=== PATIENT | male | born 1960 | race Two or more races ===

== ENCOUNTER 2017-06-03 06:06 | Inpatient (IN) | payer OTHER ==
[~2017-06-03] VITALS: Ht 180.3 cm; Wt 121.3 kg
[~2017-06-03 06:06] MED LIST: HYDR-3326 PO
--- NOTE | 2017-06-03 06:56 | NUR ---
MS RN NOTES RECEIVED PT AMBULATORY FOR SURGERY TODAY ACCORDING TO THE PT. HE'S BEEN NPO SINCE LAST NIGHT AROUND 5. PM 06/02/17 A/OX4, RESPIRATIONS EVEN AND UNLABORED TOLERATING ROOM AIR O2 SAT AT 98% AFEBRILE, IN STABLE CONDITION. NOT IN S/S OF DISTRESS. NO S/S OF HYPO/HYPERGLYCEMIA. HEAD TO TOE SKIN ASSESSMENT SKIN IS INTACT, ALL NURSING CARE RENDERED. NEEDS ATTENDED AND ANTICIPATED, KEPT CLEAN AND DRY AND COMFORTABLE, GOOD SKIN CARE PROVIDED. ON LOW BED AT ALL TIMES TO ENSURE SAFETY. SAFE HAZARD FREE ENVIRONMENT PROVIDED. CALL LIGHT WITHIN EASY TO REACH. WILL ENDORSE NEXT SHIFT CONTINUITY OF CARE.
[2017-06-03 06:58] VITALS: BP 152/98
--- NOTE | 2017-06-03 07:38 | NUR ---
MS RN: INITIAL NOTE RECEIVED PT A/OX4. DIRECT ADMISSION FROM HOME FOR SURGERY. L KNEE ATRIOPLASTY SCHEDULED. ALL CONSENTS FORMED SINGED AND PLACED IN CHART. POST OP CHECK LIST DONE. NO DISTRESS NOTED. NO SOB NOTED. VS STABLE. SKIN INTACT. IV ON RFA #20. SITE CLEAR AND PATENT. MRSA SURVEILLANCE DONE. OR PICKED UP PT AT 0730.
[2017-06-03] MEDS ORDERED: MIDAZOLAM HCL 2 MG/2ML VIAL ONE (07:50)
[2017-06-03] MEDS ORDERED: FENTANYL PF 100MCG/2ML AMPUL ONE (07:50)
[2017-06-03] MEDS ORDERED: KETOROLAC TROMETHAMINE INJ 30 MG/ML VIAL ONE (08:00)
[2017-06-03] MEDS ORDERED: BACITRACIN 50000 UNITS/VIAL ONE (08:01)
[2017-06-03] MEDS ORDERED: BUPIVACAINE 0.5 % PF 150 MG/30 ML VIAL ONE (08:01)
[2017-06-03] MEDS ORDERED: KETAMINE HCL (500MG/10ML) 50 MG/ML VIAL ONE (08:24)
[2017-06-03] MEDS ORDERED: TRANEXAMIC ACID 3,000 MG in SODIUM CHLORIDE IRRIG SOLUTION 70 ML IR ONE (08:30)
[2017-06-03 08:33] VITALS: BP 154/95
--- NOTE | 2017-06-03 10:30 | NUR ---
PT RETURNED FROM TOTAL L KNEE ATROSPLASTY DONE BY MD BISHOP. REPORT GIVEN BY HARLEY FROM OR. ALL ORDERS IN CHART FAXED TO PHARMACY. ALL OTHER ORDERS PLACED. PT A/OX4. NO PAIN NOTED. NO DISTRESS NOTED. ON 2 L NC SATING AT 97%. NO N/V NOTED. BLE STILL FEELING NUMB. ABLE TO MOVE SLIGHTLY. BP 125/93, PULSE 86, TEMP 98.2, RR 20. RESTING COMFORTABLY IN BED. CALL LIGHT WITHIN REACH.
[2017-06-03] MEDS ORDERED: BISACODYL SUPP (10 MG) 10 MG/SUPP.RECT SUPP.RECT RC PRN (11:00)
[2017-06-03] MEDS ORDERED: HYDROCODONE/APAP 5/325MG 1 EACH TABLET PO PRN (11:00)
[2017-06-03] MEDS ORDERED: ZOLPIDEM TARTRATE 5 MG TABLET PO PRN (11:00)
[2017-06-03] MEDS ORDERED: ONDANSETRON HCL/PF 4 MG/2 ML VIAL IV PRN (11:00)
[2017-06-03] MEDS ORDERED: ACETAMINOPHEN 325 MG TABLET PO PRN (11:00)
[2017-06-03] MEDS ORDERED: DOCUSATE SODIUM 250 MG CAPSULE PO PRN (11:00)
[2017-06-03] MEDS ORDERED: SENNOSIDES 8.6 MG TABLET PO PRN (11:00)
[2017-06-03] MEDS: IV D5/0.45 NACL 1,000 ML IV PRN ×2 (11:20→19:42)
[2017-06-03] MEDS: ANCEF 1 GM/50 ML D5W IV SCH ×4 (11:32→19:42)
[2017-06-03] MEDS: NICOTINE PATCH (21MG) 21 MG PATCH.TD24 TD SCH (12:33)
[2017-06-03] MEDS ORDERED: MAGNESIUM HYDROXIDE 30 ML UDC PO PRN (13:00)
[2017-06-03] MEDS ORDERED: PROMETHAZINE HCL 25 MG/ML AMPUL IM PRN (13:00)
[2017-06-03] MEDS ORDERED: CLONIDINE HCL 0.1 MG TABLET PO PRN ×2 (13:00→17:30)
[2017-06-03] MEDS ORDERED: oxyCODONE IR immediate release 5 MG CAPSULE PO PRN (13:00)
[2017-06-03] MEDS ORDERED: MAG HYDROX/AL HYDROX/SIMETH 30 ML UDC PO PRN (13:00)
[2017-06-03] MEDS ORDERED: MENTHOL/CETYLPYRD (CEPACOL) 1 LOZ LOZENGE PO PRN (13:00)
[2017-06-03] MEDS ORDERED: diphenhydrAMINE HCL 25 MG CAPSULE PO PRN (13:00)
[2017-06-03] MEDS: HYDROMORPHONE INJ 2 MG/ML DISP.SYRIN SQ PRN ×3 (13:03→21:39)
[2017-06-03] MEDS ORDERED: HYDR-3203 PO (15:36)
[2017-06-03] MEDS ORDERED: MELO-270 PO (15:36)
[2017-06-03] MEDS ORDERED: ACYC400T PO (15:36)
[2017-06-03] MEDS ORDERED: FOLI1TAB16 PO (15:36)
[2017-06-03] MEDS ORDERED: METO-304 PO (15:36)
[2017-06-03] MEDS ORDERED: METH2.5T PO (15:36)
[2017-06-03] MEDS: DOCUSATE SODIUM 100 MG CAPSULE PO SCH (16:08)
[2017-06-03] MEDS: HYDROCODONE/APAP 10/325MG 1 EA TABLET PO PRN ×2 (16:08→20:35)
[2017-06-03] MEDS: ASPIRIN 325 MG TABLET PO SCH (16:08)
--- NOTE | 2017-06-03 16:24 | NUR ---
PER MD CHAVEZ TO INCREASE OXYCODONE TO 15 MG [id number]. ADD NEW ORDER OF METROPOLOL 25MG BID. HOLD IS SBP<130. ALL ORDERS PLACED.
--- NOTE | 2017-06-03 16:53 | NUR ---
BP HIGH DUE TO PAIN. NOTIFIED MD CHAVEZ. NEW ORDERS PLACED. PT ASYMPTOMATIC. NO BLURRED VISION. NO HEADACHE NOTED. RESPONDING. A/OX4. WILL CONTINUE TO MONITOR.
[2017-06-03] MEDS ORDERED: METOPROLOL TARTRATE 25 MG TABLET PO SCH (17:00)
[2017-06-03] MEDS ORDERED: METOPROLOL TARTRATE 50 MG TABLET PO SCH (17:30)
[2017-06-03] MEDS: oxyCODONE IR immediate release 5 MG CAPSULE PO PRN (18:23)
--- NOTE | 2017-06-03 18:34 | NUR ---
MS RN: CLOSING NOTE PT A/OX4. STATUS POST LEFT TOTAL KNEE ATROPLASTY DONE BY MD BISHOP. TOOK ALL MEDICATIONS ON TIME. NO ADVERSE REACTIONS NOTED. PT ATE REGULAR MEALS THROUGH OUT THE DAY. NO N/V NOTED. PAIN CONTROLLED WITH PAIN MEDICATIONS PER MD SCOTT ORDERS. BP HIGH DUE TO PAIN. CLONIDINE ADMINISTERED PRN AND METROPOLOL PER MD ORDER. BP DOWN TO 165/80. PT ASYMPTOMATIC. MD AWARE OF BP. CONTINENT. JAIME CATH IN PLACE AND DRAINING, OUTPUT 850ML. SKIN INTACT. DRESSING ON LEFT KNEE SHOULD BE CHANGED BY MD. RFA #20 RUNNING D5 1/2 NS AT 125ML/HR. SITE CLEAR AND PATENT. CPM MACHINE TO BE PLACED FOR 6 HOURS. PT TOLERATED WELL. PT WALKED PT TODAY. ORDER TO BE FULL WEIGHT BARING WITH IMMOBILIZER WHEN AMBULATING. RESTING COMFORTABLY IN BED. CALL LIGHT WITHIN REACH.
--- NOTE | 2017-06-03 19:32 | NUR ---
MS RN INITIAL NOTES PT IS IN BED RESTING WITH CPM IN PLACE. A/0 X4 ABLE TO MAKE NEEDS KNOWN. PER DAY SHIFT, PT BP IS HIGH DUE TO PAIN. PAIN MEDS TO BE GIVEN Q1HR. JAIME CATHETER IS INTACT AND PATENT. IV ACCESS IS INTACT AND INFUSING D5 1/2 NS @125. DRESSING IS INTACT NO S/S OF LEAKAGE. BED IS IN LOW AND LOCKED POSITION, CALL LIGHT WITHIN REACH. WILL CONTINUE TO MONITOR PT
[2017-06-03 20:00] VITALS: BP 167/94
[2017-06-03] MEDS: PANTOPRAZOLE 40 MG TABLET.DR PO SCH (21:38)
[2017-06-04] MEDS: HYDROMORPHONE INJ 2 MG/ML DISP.SYRIN SQ PRN ×6 (03:17→22:46)
[2017-06-04] MEDS: IV D5/0.45 NACL 1,000 ML IV PRN (03:23)
[2017-06-04] MEDS: oxyCODONE IR immediate release 5 MG CAPSULE PO PRN ×3 (04:53→20:01)
[2017-06-04] MEDS: HYDROCODONE/APAP 10/325MG 1 EA TABLET PO PRN ×3 (06:00→21:18)
--- NOTE | 2017-06-04 06:13 | NUR ---
MS RN CLOSING NOTES PT IS IN BED RESTING, A/O X4 ABLE TO MAKE NEEDS KNOWN. BREATHING EVENLY AND UNLABORED ON RA. STATED HE WAS ABLE TO GET A GOOD NIGHTS SLEEP. PRN PAIN MEDICATION GIVEN ORDERED. JAIME CATHETER IS INTACT AND DRAINING. IV ACCESS IS INTACT AND INFUSING. DRESSING ON LEFT LEG IS INTACT. ALL NEEDS WERE ANTICIPATED AND MET. PT REFUSED BED BATH AND LINEN CHANGE. BED IS IN LOW AND LOCKED POSITION, CALL LIGHT WITHIN REACH. WILL ENDORSE TO DAYSHIFT.
[2017-06-04 06:27] LABS: HEMOGLOBIN 13.4 g/dL (13.5-17.5)
--- NOTE | 2017-06-04 07:45 | NUR ---
RECEIVED PATIENT IN BED, RESTING, NOTED WITH NO SOB, BREATHING EVEN AND UNLABORED, ALERT AND ORIENTED X 4, ABLE TO VERBALIZE NEEDS. WITH C/O PAIN, DUE MEDICATION GIVEN, WITH NO SIGNS OF ACUTE DISTRESS. KEPT PATIENT SAFE AND DRY. CONTINUES TO HAVE JAIME CATHETER AND IS DRAINING WELL WITH YELLOW URINE. ON IV HYDRATION D5 1/2 NS @ 125 ML/HR, INFUSING WELL. ALL PATIENT'S NEEDS ATTENDED TO, CALL LIGHT PLACED WITHIN EASY REACH. WILL CONTINUE TO MONITOR
[2017-06-04 08:30] VITALS: BP 167/97
[2017-06-04] MEDS: FOLIC ACID 1 MG TABLET PO SCH (08:40)
[2017-06-04] MEDS: ASPIRIN 325 MG TABLET PO SCH ×2 (08:40→16:22)
[2017-06-04] MEDS: DOCUSATE SODIUM 100 MG CAPSULE PO SCH ×2 (08:40→16:22)
[2017-06-04] MEDS: METOPROLOL TARTRATE 50 MG TABLET PO SCH ×2 (08:41→21:14)
[2017-06-04] MEDS: ACYCLOVIR 200 MG CAPSULE PO SCH (08:41)
[2017-06-04] MEDS: NICOTINE PATCH (21MG) 21 MG PATCH.TD24 TD SCH (08:46)
--- NOTE | 2017-06-04 09:45 | NUR ---
D/C JAIME CATHETER RECEIVED NEW ORDER FROM DR. CANO TO D/C JAIME CATHETER, PATIENT TOLERATED PROCEDURE WELL, NO BLEEDING AT SITE, NO SWELLING, NO S/S OF INFECTION NOTED. ALL ORDERS NOTED AND CARRIED OUT. PROVIDED PATIENT WITH URINAL. ALL PATIENT'S NEEDS ATTENDED TO, PLACED CALL LIGHT WITHIN EASY REACH, BED IN LOW POSITION AND LOCKED IN PLACE.
--- NOTE | 2017-06-04 12:09 | NUR ---
RECEIVED NEW ORDER FROM DELFINA RINCON TO D/C IV HYDRATION AND TO GIVE ONE TIME DOSE OF DILAUDID 1MG IV PUSH. ALL ORDERS NOTED AND CARRIED OUT, PATIENT UNDERSTANDS AND AGREES WITH PLAN OF CARE, PHARMACY MADE AWARE.
[2017-06-04] MEDS ORDERED: HYDROMORPHONE 1 MG/1 ML DISP.SYRIN IV ONE (12:30)
[2017-06-04] MEDS ORDERED: HYDROMORPHONE INJ 2 MG/ML DISP.SYRIN IV ONE (12:30)
--- NOTE | 2017-06-04 12:36 | NUR ---
DILAUDID X 1 DOSE ADMINISTERED FOR PAIN LEVEL AT 03/17, PATIENT PLACED UP ON CHAIR BY PHYSICAL THERAPIST AND TOLERATING LUNCH WELL. WILL CONTINUE TO MONITOR FOR EFFECTIVENESS.
--- NOTE | 2017-06-04 13:00 | NUR ---
RE-ASSESSED PATIENT'S PAIN, NOW AT 5/10, PATIENT VERBALIZED THAT IT IS GOOD THAT HE IS NOW ABLE TO GET UP AND SIT UP ON A CHAIR. WILL CONTINUE TO MONITOR PATIENT.
--- NOTE | 2017-06-04 15:30 | NUR ---
PATIENT IN BED, COMFORTABLE, ASLEEP BUT CAN BE EASILY AWOKEN, NOTED WITH NO FACIAL GRIMACING, NO SIGNS AND SYMPTOMS OF ACUTE DISTRESS. WILL CONTINUE TO MONITOR PATIENT.
[2017-06-04 16:00] VITALS: BP 131/81
--- NOTE | 2017-06-04 17:51 | NUR ---
RECEIVED NEW ORDER FROM DR. CANO TO D/C NICOTINE PATCH ORDER. ALL ORDERS NOTED AND CARRIED OUT. PATIENT INFORMED AND AGREES WITH PLAN OF CARE.
--- NOTE | 2017-06-04 18:45 | NUR ---
RN CLOSING NOTES PATIENT UP IN BED, ALERT AND ORIENTED X 4, NOTED WITH NO SOB, BREATHING EVEN AND UNLABORED, NO S/S OF ACUTE DISTRESS AT THIS TIME. ALL PATIENT'S NEEDS ATTENDED TO, KEPT PT SAFE AND DRY, CLEAN AND COMFORTABLE. PLACED CALL LIGHT WITHIN EASY REACH.
--- NOTE | 2017-06-04 19:30 | NUR ---
MS RN NOTES RECEIVED ON BED A/O X4,BREATHING NON LABORED,O2 IN USED AT 2L/NC TO KEEP O2 SAT ABOVE 90%.LEFT DRESSING INTACT AND DRY.SALINE LOCK LEFT WRIST INTACT AND PATENT.DVT PUMP IN USED FOR DVT PROPHYLAXIS. CALL LIGHT IN REACH.WILL CONTINUE TO MONITOR STATUS.
--- NOTE | 2017-06-04 19:32 | NUR ---
MS RN NOTES PAIN MANAGEMENT C/O PAIN 10/ VIA LEFT KNEE,MEDICATED WITH DILAUDID 0.5MG SQ VIA LEFT DELTOID ORDERED.
[2017-06-04 19:55] VITALS: BP 156/86
[2017-06-04 20:00] VITALS: BP 156/86
--- NOTE | 2017-06-04 20:01 | NUR ---
MS RN NOTES PAIN MANAGEMENT PAIN AT 12/15,MEDICATED WITH OXY IR 15MG PO PER DR CHAVEZ ORDER.
[2017-06-04] MEDS: PANTOPRAZOLE 40 MG TABLET.DR PO SCH (21:14)
--- NOTE | 2017-06-04 21:18 | NUR ---
MS RN NOTES CLAIMED PAIN IS ABOUT TO START.PAIN LEVEL 3/10,MEDICATED WITH NORCO 10/325MG,2 TABLET ORDERED.
--- NOTE | 2017-06-04 22:00 | NUR ---
MS RN NOTES MD VISIT SEEN BY DR CHAVEZ WITH NEW ORDER NOTED AND CARRIED OUT.
--- NOTE | 2017-06-04 22:46 | NUR ---
MS RN NOTES PAIN MANAGEMENT C/O PAIN 7/10 ON PAIN SCALE,MEDICATE WITH DILAUDID 1MG SQ VIA RIGHT DELTOID
[2017-06-05] MEDS ORDERED: oxyCODONE IR immediate release 5 MG CAPSULE ONE ×2 (00:47→05:41)
[2017-06-05] MEDS: oxyCODONE IR immediate release 5 MG CAPSULE PO PRN ×4 (00:54→13:58)
--- NOTE | 2017-06-05 00:54 | NUR ---
MS RN NOTES PAIN MANAGEMENT C/O PAIN 6/10 ON PAIN SCALE,MEDICATED WITH OXY IR 20MG PO NEW ORDER BY DR CHAVEZ.
[2017-06-05] MEDS: HYDROMORPHONE INJ 2 MG/ML DISP.SYRIN SQ PRN ×4 (03:14→16:25)
--- NOTE | 2017-06-05 03:14 | NUR ---
MS RN NOTES PAIN MANAGEMENT AWAKE,C/O PAIN 7/10 ON PAIN SCALE, MEDICATED WITH DILAUDID 1MG SQ ORDERED.NEGATIVE FOR OVERSEDATION.
--- NOTE | 2017-06-05 03:44 | NUR ---
MS RN NOTES STILL AWAKE,LESSER PAIN ABOUT 5/10,TOLERABLE.WILL CONTINUE TO MONITOR
--- NOTE | 2017-06-05 05:43 | NUR ---
MS RN NOTES AWAKE,C/O PAIN VIA LEFT KNEE 6/10 ON PAIN SCALE,MEDICATED WITH OXY IR 20MG PO ORDERED.
--- NOTE | 2017-06-05 06:49 | NUR ---
MS RN NOTES OXY IR NOT EFFECTIVE THIS TIME,MEDICATED WITH DILAUDID 1MG SQ ORDERED AND PER PATIENT REQUEST,BP 147/86,O2 SAT 93%.
--- NOTE | 2017-06-05 07:03 | NUR ---
MS RN NOTES STILL IN PAIN,OXY IR INCREASED TO 20MG PO BY DR CHAVEZ. VITAL SIGNS WITH IN NORMAL LIMITS.FOR DRESSING CHANGE TODAY ON LEFT KNEE.IN NO ACUTE DISTRESS.WILL ENDORSE TO DAY NURSE FOR MORGAN.
--- NOTE | 2017-06-05 07:20 | NUR ---
RN MS NOTES PATIENT ALERT AND ORIENTED X3, VERBALLY RESPONSIVE, PATIENT BREATHING EVEN AND UNLABORED, DENIES PAIN OR DISCOMFORT AT THIS TIME, NO SOB NOTED, NEEDS ATTENDED AND MET, CALL LIGHT WITHIN REACH, SAFETY MEASURES IN PLACED, WILL CONTINUE TO MONITOR.
[2017-06-05 08:00] VITALS: BP 135/95
[2017-06-05] MEDS: ACYCLOVIR 200 MG CAPSULE PO SCH (08:32)
[2017-06-05] MEDS: DOCUSATE SODIUM 100 MG CAPSULE PO SCH ×2 (08:32→16:25)
[2017-06-05 08:33] VITALS: BP 135/95
[2017-06-05] MEDS: FOLIC ACID 1 MG TABLET PO SCH (08:33)
[2017-06-05] MEDS: ASPIRIN 325 MG TABLET PO SCH ×2 (08:33→16:25)
[2017-06-05] MEDS: METOPROLOL TARTRATE 50 MG TABLET PO SCH (08:33)
--- NOTE | 2017-06-05 12:00 | NUR ---
RN MS NOTES PATIENT SEEN BY LEXI MATHIS, CHANGED DRESSING AND CLEARED PATIENT FOR DISCHARGE.
[2017-06-05] MEDS ORDERED: ASPI325T2 PO (15:10)
--- NOTE | 2017-06-05 16:00 | NUR ---
RN MS NOTES CALLED DR. CHAVEZ FOR PAIN MEDICATIONS PRIOR TO DISCHARGE, LEFT A VOICEMAIL. AWAITING FOR CALL BACK.
--- NOTE | 2017-06-05 17:28 | NUR ---
TENNIS PROFESSIONAL NOTE PATIENT ALERT AND ORIENTED X4, DENIES PAIN AT THIS TIME, NO S/SX OF DISTRESS NOTED. RECEIVED DISCHARGE INSTRUCTIONS AND VERBALIZED UNDERSTANDING, SIGNED DISCHARGE PAPERWORKS. BELONGINGS RECONCILED AND COMPLETE. SKIN ASSESSMENT COMPLETED, SKIN DRY AND INTACT EXCEPT FOR LEFT KNEE INCISION, DRESSING CHANGED BY LEXI MATHIS. REPORT GIVEN TO KATHYA AT [facility], PIV KEPT ON RIGHT FA #[phone] REQUESTED BY RN AT [facility]. UNABLE TO GET A HOLD OF DR. CHAVEZ PAIN MANAGEMENT, BUT PER KATHYA, THEY HAVE THEIR OWN PAIN MANAGEMENT DOCTOR THAT CAN FOLLOW UP. ALL NEEDS ATTENDED. TRANSPORTATION ARRIVED AND TRANSFERRED PATIENT VIA WHEELCHAIR. PATIENT LEFT THE FACILITY IN STABLE CONDITION.
== END 2017-06-05 17:20 | DRG 470 ==
LOC: DS 06:06 → MED 06:10 → UNDOADMIN 06:10 → UNDODISIN 06-05 10:10
PROVIDERS: ADMIT Family Medicine; ATTEND Internal Medicine
PROC: 0SRD0JZ Replacement of Left Knee Joint with Synthetic Substitute, Open Approach (ICD-10-PCS; principal; 2017-06-03 08:34)
DX: M17.12 Unilateral primary osteoarthritis, left knee (principal); B00.9 Herpesviral infection, unspecified; K21.9 Gastro-esophageal reflux disease without esophagitis; I10 Essential (primary) hypertension; Z68.37 Body mass index [BMI] 37.0-37.9, adult; M19.90 Unspecified osteoarthritis, unspecified site; E66.9 Obesity, unspecified
CPT/HCPCS: 36415; 85027-TC; 86850-TC; 86921-TC; 87081-TC; 88305-TC; 88311-TC; 97110-TC; 97116-TC; 97530-TC; 97760-TC; A4217; J0690; J1170; J1885; J2250; J3010; J3490; J7060; Z7610